=== PATIENT | female | born 1990 | race Caucasian/White ===

== ENCOUNTER 2023-10-23 11:33 | Emergency (ER) | payer OTHER ==
[2023-10-23 11:44] VITALS: TEMP 97.6; BMI 23.8
[2023-10-23 23:06] VITALS: BP 106/66; PULSE 66; RESP 14
== END 2023-10-23 23:27 | disposition home or self-care (01) ==
LOC: JERFT 11:33 → JER 11:33
PROC: 3E023GC Introduction of Other Therapeutic Substance into Muscle, Percutaneous Approach (ICD-10-PCS; principal; 2023-10-23)
DX: S00.83XA Contusion of other part of head, initial encounter (principal); X58.XXXA Exposure to other specified factors, initial encounter
CPT/HCPCS: 70450-TC; 99284-25